=== PATIENT | female | born 1960 | race Caucasian/White ===

== ENCOUNTER 2024-06-13 12:34 | Day surgery (SDC) | payer OTHER ==
[2024-06-11 09:35] VITALS: BMI 30.1
[2024-06-13 13:53] VITALS: TEMP 98.3
[2024-06-13] MEDS: IV FLUID CONTINUATION 1,000 ML IV ONE (13:58)
[2024-06-13] MEDS: LACTATED RINGERS 1,000 ML IV SCH (13:58)
[2024-06-13] MEDS ORDERED: PROPOFOL 10 MG/ML 20 ML VIAL IV ONE (14:56)
--- NOTE | 2024-06-13 15:12 | P.PCN ---
Date of Procedure: 06/13/24 Procedure(s) Performed: BRIEF HISTORY: Patient is a 64-year-old pleasant White female scheduled for an elective colonoscopy as a part of Screening for colon cancer and family history of colon cancer. Her current and maternal cousin diagnosed with colon cancer in their 40s. PROCEDURE PERFORMED: Colonoscopy With biopsy. PREOPERATIVE DIAGNOSIS: Screening for colon cancer and family history of colon cancer. IV sedation per Anesthesia. PROCEDURE: After informed consent was obtained, the patient, was brought into the endoscopy unit. IV sedation was administered by Anesthesia under continuous monitoring. Digital rectal examination was normal. Initially the Olympus CF-160 flexible video colonoscope was then inserted in the rectum, gradually advanced into the cecum without any difficulty. Careful examination was performed as the scope was gradually being withdrawn. Ileocecal valve and the appendiceal orifice were visualized and appeared normal. Prep was excellent. Mucosa of the cecum, ascending colon, transverse colon,He normal. In the descending colon there was a 5 limited sessile polyp removed by cold biopsy. Rest of the descending colon, sigmoid colon, and rectum appeared normal. Retroflexion was performed in the rectum and no lesions were seen.Scattered sigmoid diverticulosis. The patient tolerated the procedure well. IMPRESSION: 5 mm descending colon polyp status post removal by cold biopsy Scattered sigmoid diverticulosis RECOMMENDATIONS: Findings of this examination were discussed with the patient As well as a family. She was advised to follow with the biopsy results. Recommend repeat colonoscopy in 5 yearsBecause of strong family history of colon cancer.
[2024-06-13 15:24] VITALS: RESP 16
[2024-06-13 15:33] VITALS: BP 134/85; PULSE 72
== END 2024-06-13 15:53 | disposition home or self-care (01) ==
LOC: ORWHC2ENDO 12:34
PROVIDERS: ATTEND Internal Medicine Gastroenterology
DX: D12.4 Benign neoplasm of descending colon (principal); K57.30 Diverticulosis of large intestine without perforation or abscess without bleeding; K21.9 Gastro-esophageal reflux disease without esophagitis; Z80.0 Family history of malignant neoplasm of digestive organs; Z79.899 Other long term (current) drug therapy
CPT/HCPCS: 88305; 45380; J2704